=== PATIENT | male | born 1945 | race Caucasian/White ===

== ENCOUNTER 2025-03-19 19:38 | Inpatient (IN) | payer MEDICARE, OTHER ==
[2025-03-19] MEDS ORDERED: Albuterol 2.5 MG (3 mL) NEB NEB PRN (23:29)
[2025-03-19] MEDS ORDERED: Ondansetron PF 4 MG/2 ML Vial IVP PRN (23:30)
[2025-03-19] MEDS ORDERED: Acetaminophen 325 MG TAB PO PRN (23:30)
[2025-03-19] MEDS ORDERED: Guaifenesin DM 100-10/5 ML UDCUP PO PRN (23:30)
[2025-03-19] MEDS ORDERED: Calcium Carbonate 500 MG ChewTAB PO PRN (23:30)
[2025-03-20] MEDS: Vancomycin 1 GM Premix Bag IVPB SCH (02:33)
[2025-03-20 03:05] LABS: Actual Bicarbonate (HCO3a) 19.1 mEq/L (22-28); Base Excess (BEa) -3.7 mEq/L (-2.0 to +3.0); CO2 Tension 28.7 mmHg (35.0-45.0); Calcium, Ionized (arterial) 1.13 mmol/L (1.12-1.30); Hematocrit-ABG 38 % (42.0-52.0); Hemoglobin (Hb) 13.0 g/dL (14.0-18.0); O2 Tension (PaO2), arterial 64.3 mmHg (> 60.0); Potassium - ABG Lab 4.05 mmol/L (3.70-5.30); pH, Arterial 7.442 (7.35-7.45)
[2025-03-20 03:07] LABS: Puncture Site Left Radial artery
[2025-03-20 03:44] LABS: #Basophils 0.03 10x3/uL (0.0-0.2); #Eosinophils Less than 0.03 10x3/uL (0.0-0.7); #Monocytes 0.78 10x3/uL (0.11-0.59); #Neutrophils 18.58 10x3/uL (1.40-6.50); %Basophils 0.2 % (0.0-1.0); %Eosinophils 0.0 % (0.0-10.0); %Lymphocytes 1.6 % (21.0-51.0); %Monocytes 3.9 % (0.0-10.0); %Neutrophils 93.1 % (42.0-75.0); Hematocrit 33.2 % (42.0-52.0); Hemoglobin 10.5 g/dL (14.0-18.0); Mean Corpuscular Hemoglobin 31.9 pg (27.0-31.0); Mean Corpuscular Volume 100.9 fL (78.0-98.0); Platelet Count 215 10x3/uL (130-400); Red Blood Cell (RBC) Count 3.29 mill/uL (4.70-6.10); White Blood Cell (WBC) Count 19.94 10x3/uL (4.8-10.8)
[2025-03-20 04:12] LABS: Anion Gap 17 mmol/L (10-20); BUN (Urea Nitrogen) 22 mg/dL (8.4-25.7); Calc. Creatinine Clearance 57 mL/min (70-130); Calcium 8.5 mg/dL (7.8-10.44); Carbon Dioxide 18 mmol/L (23-31); Chloride 109 mmol/L (98-107); Glucose 113 mg/dL (83-110); Potassium 4.2 mmol/L (3.5-5.1); Sodium 140 mmol/L (136-145)
[2025-03-20] MEDS: Furosemide 40 MG (4 mL) VIAL SLOW IVP SCH (04:40)
[2025-03-20] MEDS ORDERED: PHOS-NAK 1 PKT PACK PO PRN (09:00)
[2025-03-20] MEDS ORDERED: Vancomycin 1 GM in Premix 1 BAG IVPB SCH (09:00)
[2025-03-20] MEDS ORDERED: Electrolyte Replacement Protocol 1 EACH FS SCH (09:00)
[2025-03-20] MEDS ORDERED: Magnesium 2 GM/50 ML(in water) 2 GM in Premix 1 BAG IVPB PRN (09:00)
[2025-03-20] MEDS: Enoxaparin 40 MG (0.4 mL) SYRINGE SC SCH (09:41)
[2025-03-20] MEDS: BuPROPion XL 150 MG ER.TAB PO SCH (09:42)
[2025-03-20] MEDS: Ferrous Sulfate 325 MG TAB PO SCH (09:43)
[2025-03-20] MEDS: Finasteride 5 MG TAB PO SCH (09:43)
[2025-03-20] MEDS: Pantoprazole 40 MG DR.TAB PO SCH (09:43)
[2025-03-20] MEDS: Gabapentin 300 MG CAP PO SCH (09:43)
[2025-03-20] MEDS: lamoTRIgine 25 MG TAB PO SCH (09:43)
[2025-03-20] MEDS: Mupirocin 1 GM TUBE NASAL DECOLONIZATION NASAL SCH (21:05)
[2025-03-20] MEDS: Transdermal Patch Removal TOP SCH (22:06)
[2025-03-20] MEDS: PARoxetine 20 MG TAB PO SCH (22:09)
[2025-03-21 04:55] LABS: #Basophils Less than 0.03 10x3/uL (0.0-0.2); #Eosinophils Less than 0.03 10x3/uL (0.0-0.7); #Monocytes 0.55 10x3/uL (0.11-0.59); #Neutrophils 15.00 10x3/uL (1.40-6.50); %Basophils 0.1 % (0.0-1.0); %Eosinophils 0.0 % (0.0-10.0); %Lymphocytes 2.7 % (21.0-51.0); %Monocytes 3.4 % (0.0-10.0); %Neutrophils 93.0 % (42.0-75.0); Hematocrit 29.2 % (42.0-52.0); Hemoglobin 9.2 g/dL (14.0-18.0); Mean Corpuscular Hemoglobin 31.8 pg (27.0-31.0); Mean Corpuscular Volume 101.0 fL (78.0-98.0); Platelet Count 180 10x3/uL (130-400); Red Blood Cell (RBC) Count 2.89 mill/uL (4.70-6.10); White Blood Cell (WBC) Count 16.13 10x3/uL (4.8-10.8)
[2025-03-21 05:16] LABS: Vancomycin, Random 19.9 ug/mL (See Comment)
[2025-03-21 05:17] LABS: Anion Gap 14 mmol/L (10-20); BUN (Urea Nitrogen) 31 mg/dL (8.4-25.7); Calc. Creatinine Clearance 55 mL/min (70-130); Calcium 8.5 mg/dL (7.8-10.44); Carbon Dioxide 21 mmol/L (23-31); Chloride 112 mmol/L (98-107); Glucose 153 mg/dL (83-110); Potassium 3.4 mmol/L (3.5-5.1); Sodium 144 mmol/L (136-145)
[2025-03-21] MEDS: Potassium Chloride 20 MEQ in Premix 1 BAG IVPB PRN (06:02)
[2025-03-21] MEDS: Enoxaparin 30 MG (0.3 mL) SYRINGE SC SCH (08:29)
[2025-03-21] MEDS: Furosemide 20 MG (2 mL) VIAL SLOW IVP SCH (09:53)
[2025-03-21 18:26] LABS: Potassium 3.8 mmol/L (3.5-5.1)
[2025-03-21] MEDS: Pantoprazole 40 MG DR.TAB PO SCH (20:28)
[2025-03-22 00:09] VITALS: BP 130/66
[2025-03-22 04:29] LABS: #Basophils Less than 0.03 10x3/uL (0.0-0.2); #Eosinophils Less than 0.03 10x3/uL (0.0-0.7); #Monocytes 0.90 10x3/uL (0.11-0.59); #Neutrophils 19.31 10x3/uL (1.40-6.50); %Basophils 0.1 % (0.0-1.0); %Eosinophils 0.0 % (0.0-10.0); %Lymphocytes 1.9 % (21.0-51.0); %Monocytes 4.3 % (0.0-10.0); %Neutrophils 92.9 % (42.0-75.0); Hematocrit 29.9 % (42.0-52.0); Hemoglobin 9.4 g/dL (14.0-18.0); Mean Corpuscular Hemoglobin 31.4 pg (27.0-31.0); Mean Corpuscular Volume 100.0 fL (78.0-98.0); Platelet Count 172 10x3/uL (130-400); Red Blood Cell (RBC) Count 2.99 mill/uL (4.70-6.10); White Blood Cell (WBC) Count 20.79 10x3/uL (4.8-10.8)
[2025-03-22 05:14] LABS: Anion Gap 13 mmol/L (10-20); BUN (Urea Nitrogen) 37 mg/dL (8.4-25.7); Calc. Creatinine Clearance 53 mL/min (70-130); Calcium 8.7 mg/dL (7.8-10.44); Carbon Dioxide 20 mmol/L (23-31); Chloride 111 mmol/L (98-107); Glucose 143 mg/dL (83-110); Potassium 4.2 mmol/L (3.5-5.1); Sodium 140 mmol/L (136-145)
[2025-03-22] MEDS: ALPRAZolam 0.25 MG TAB PO PRN (09:16)
[2025-03-22 23:28] LABS: Actual Bicarbonate (HCO3a) 17.5 mEq/L (22-28); Base Excess (BEa) -5.1 mEq/L (-2.0 to +3.0); CO2 Tension 25.8 mmHg (35.0-45.0); Calcium, Ionized (arterial) 1.19 mmol/L (1.12-1.30); Hematocrit-ABG 34 % (42.0-52.0); Hemoglobin (Hb) 11.6 g/dL (14.0-18.0); Potassium - ABG Lab 4.30 mmol/L (3.70-5.30); pH, Arterial 7.449 (7.35-7.45)
[2025-03-22 23:29] LABS: O2 Tension (PaO2), arterial 49.3 mmHg (> 60.0); Puncture Site Right Radial artery
[2025-03-23 01:42] VITALS: TEMP 98.1
[2025-03-23] MEDS ORDERED: Norepinephrine 8 MG/0.9% NS 250 ML ONE (03:39)
== END 2025-03-23 09:22 | disposition expired | DRG 871 ==
LOC: PCU 21:11 → IMCU/EMU 03-20 03:58
PROVIDERS: ADMIT Internal Medicine; ATTEND Family Medicine
PROC: 5A0945A Assistance with Respiratory Ventilation, 24-96 Consecutive Hours, High Flow/Velocity Cannula (ICD-10-PCS; principal; 2025-03-20)
PROC: 3E03329 Introduction of Other Anti-infective into Peripheral Vein, Percutaneous Approach (ICD-10-PCS; 2025-03-20)
PROC: 0BH17EZ Insertion of Endotracheal Airway into Trachea, Via Natural or Artificial Opening (ICD-10-PCS; 2025-03-20)
PROC: 4A133R1 Monitoring of Arterial Saturation, Peripheral, Percutaneous Approach (ICD-10-PCS; 2025-03-20)
PROC: 5A09357 Assistance with Respiratory Ventilation, Less than 24 Consecutive Hours, Continuous Positive Airway Pressure (ICD-10-PCS; 2025-03-23)
DX: A41.9 Sepsis, unspecified organism (principal); G93.41 Metabolic encephalopathy; J18.9 Pneumonia, unspecified organism; I50.33 Acute on chronic diastolic (congestive) heart failure; J96.21 Acute and chronic respiratory failure with hypoxia; J44.1 Chronic obstructive pulmonary disease with (acute) exacerbation; E87.3 Alkalosis; R04.2 Hemoptysis; F03.918 Unspecified dementia, unspecified severity, with other behavioral disturbance; J44.0 Chronic obstructive pulmonary disease with (acute) lower respiratory infection; F03.911 Unspecified dementia, unspecified severity, with agitation; E87.20 Acidosis, unspecified; Z78.1 Physical restraint status; R65.20 Severe sepsis without septic shock; E78.5 Hyperlipidemia, unspecified; N40.0 Benign prostatic hyperplasia without lower urinary tract symptoms; K21.9 Gastro-esophageal reflux disease without esophagitis; I46.9 Cardiac arrest, cause unspecified; Y95 Nosocomial condition; Z87.891 Personal history of nicotine dependence; Z79.899 Other long term (current) drug therapy; Z86.12 Personal history of poliomyelitis
CPT/HCPCS: 36415; 36600; 71045; 80048; 80202; 82805; 83880; 85025; 87081; 93005; 93010; 93306; 94640; 94660; J0692; J1650; J1940; J2919; J3373; J3480; J7050; J7626